=== PATIENT | female | born 1965 | race Caucasian/White ===

== ENCOUNTER 2018-05-14 22:08 | Inpatient (IN) | payer SELFPAY ==
[~2018-05-14] VITALS: Ht 157.5 cm; Wt 74.1 kg
[2018-05-14] MEDS ORDERED: ALBUTEROL SULF 0.083% NEB SOLN 3 ML NEB NEB STA (22:26)
[2018-05-14] MEDS ORDERED: SODIUM CHLORIDE 0.9% 1000ML 1,000 ML IV ONE ×2 (22:30→23:45)
[2018-05-14] MEDS ORDERED: METHYLPREDNISOLONE SOD SUCC 125 MG/2ML VIAL IV ONE (22:30)
[2018-05-14] MEDS ORDERED: IPRATROPIUM BROMIDE 0.02% 2.5 ML NEB NEB ONE (22:30)
[2018-05-14 22:48] LABS: BASOPHILS % 0.2 % (0.0-1.0); EOSINOPHILS # (AUTO) 0.2 (0.0-0.4); EOSINOPHILS % 2.5 % (0.0-6.0); HEMOGLOBIN 13.5 g/dL (12.0-16.0); LYMPHOCYTES # (AUTO) 2.6 (1.0-3.2); LYMPHOCYTES % 26.8 % (18.0-39.1); MEAN CORPUSCULAR HEMOGLOBIN 30.1 pg (28-32); MEAN CORPUSCULAR HGB CONC 33.8 g/dL (31-35); MEAN CORPUSCULAR VOLUME 89.3 fL (81-99); MONOCYTES # (AUTO) 0.4 (0.2-0.8); MONOCYTES % 4.3 % (4.4-11.3); NEUTROPHILS # (AUTO) 6.3 (2.1-6.9); NEUTROPHILS % 65.4 % (38.7-80.0); PLATELET COUNT 330 x10e3/uL (140-360); RED BLOOD COUNT 4.48 x10e6/uL (3.6-5.1)
[2018-05-14 23:07] LABS: ALANINE AMINOTRANSFERASE 16 IU/L (0-55); ALBUMIN 2.8 g/dL (3.5-5.0); ALBUMIN/GLOBULIN RATIO 0.5 (0.8-2.0); ALKALINE PHOSPHATASE 97 IU/L (40-150); ANION GAP 23.6 mmol/L (8-16); BLOOD UREA NITROGEN 19 mg/dL (7-26); BUN/CREATININE RATIO 20 (6-25); CALCIUM 9.7 mg/dL (8.4-10.2); CARBON DIOXIDE 23 mmol/L (22-29); CHLORIDE 98 mmol/L (98-107); CREATINE KINASE 62 IU/L (29-168); CREATININE, SERUM 0.94 mg/dL (0.57-1.11); EST GLOMERULAR FILTRATION RATE > 60 ML/MIN (60-); GLUCOSE 116 mg/dL (74-118); POTASSIUM 3.6 mmol/L (3.5-5.1); SODIUM 141 mmol/L (136-145)
[2018-05-14 23:15] LABS: B-TYPE NATRIURETIC PEPTIDE2 507.7 pg/mL (0-100)
[2018-05-14] MEDS ORDERED: SODIUM CHLORIDE 0.9% 1000ML 1,000 ML ONE (23:31)
[2018-05-14] MEDS ORDERED: ONDANSETRON HCL INJ 2 MG/ML VIAL IV STA (23:38)
[2018-05-14] MEDS ORDERED: HYDROMORPHONE 2MG/ML 2 MG/ML ML IV STA (23:38)
[2018-05-15] VITALS (9 sets, daily range): BP systolic 130–143; BP diastolic 71–88
--- NOTE | 2018-05-15 00:22 | Diagnostic Imaging Report ---
EXAMINATION: CHEST SINGLE (PORTABLE) INDICATION: Cough, fever COMPARISON: None FINDINGS: TUBES and LINES: None. LUNGS: Multifocal airspace disease with upper lung predominance. There is mild prominence of the central pulmonary vasculature, consistent with pulmonary venous congestion. PLEURA: No pleural effusion or pneumothorax. HEART AND MEDIASTINUM: The cardiomediastinal silhouette is unremarkable. BONES AND SOFT TISSUES: No acute osseous lesion. Soft tissues are unremarkable. UPPER ABDOMEN: No free air under the diaphragm. IMPRESSION: Findings are compatible with multifocal infection with upper lobe predominance. Follow-up until resolution after treatment is recommended. Signed by: Dr. Horacio eKlley M.D. on 05/15/2018 12:18 AM
[2018-05-15] MEDS ORDERED: CEFTRIAXONE SOD 1 GM VIAL IV SCH (00:30)
[2018-05-15] MEDS ORDERED: SODIUM CHLORIDE 0.9% 1000ML 1,000 ML IV SCH (00:36)
[2018-05-15 00:41] LABS: BILIRUBIN,URINE 1+ (NEGATIVE); CLARITY,URINE CLOUDY (CLEAR); COLOR,URINE YELLOW (YELLOW); KETONES,URINE 1+ (NEGATIVE); LEUKOCYTE ESTERASE ,URINE NEGATIVE (NEGATIVE); NITRITE,URINE NEGATIVE (NEGATIVE); PROTEIN,URINE DIPSTICK TRACE (NEGATIVE); URINE UROBILINOGEN 4 mg/dL (0.2 - 1)
--- OUTSIDE RECORDS SUMMARY | 2018-05-15 00:42 | XMS REPORT ---
Author Author [facility] Address Unknown Phone Unavailable Care Team Providers Care [place] Controller Name Role Phone Damaris MTZ Unavailable Unavailable Problems This patient has no known problems. Allergies, Adverse Reactions, Alerts This patient has no known allergies or adverse reactions. Medications This patient has no known medications. Results Test Description Test Time Test Comments Text Results Atomic Results Result Comments CHEST SINGLE (PORTABLE) 2018-05-15 00:17:00 [place] [address] Patient Name: CLARISA KIDD MR #: [id number] : 1965 Age/Sex: 52/F Req #: [id number] Adm Physician: Ordered by: ILDA MTZ MD Report #: [id number] Location: ER Room/Bed: Procedure: [id number] DX/CHEST SINGLE (PORTABLE) Exam Date: 05/14/18 Exam Time: 2305 REPORT STATUS: Signed EXAMINATION: CHEST SINGLE (PORTABLE) IND ICATION: Cough, fever COMPARISON: None FINDINGS: TUBES and LINES: None. LUNGS: Multifocal airspace disease with upper lung predominance. There is mild prominence of the central pulmonary vasculature, consistent with pulmonary venous congestion. PLEURA: No pleural effusion or pneumothorax. HEART AND MEDIASTINUM: The cardiomediastinal silhouette is unremarkable. BONES AND SOFT TISSUES: No acute osseous lesion. Soft tissues are unremarkable. UPPER ABDOMEN: No free air under the diaphragm. IMPRESSION: Findings are compatible with multifocal infection with upper lobe predominance. Follow-up until resolution after treatment is recommended. Signed by: Dr. Horacio Kelley M.D. on 05/15/2018 12:18 AM Dictated By: HORACIO PABON MD Transcribed By: MINA on 05/15/1817 COPY TO: ILDA MTZ MD
[2018-05-15 00:48] LABS: BACTERIA,URINE MANY /HPF; EPITHELIAL CELLS,URINE FEW /LPF; MUCUS,URINE MANY (RARE); RBC,URINE 0-5 /HPF (0-5); WBC,URINE (MAN) 0-5 /HPF (0-5)
[2018-05-15] MEDS: AZITHROMYCIN 500MG/NS 250 ML 250 ML IV SCH (01:12)
[2018-05-15] MEDS ORDERED: VENLAFAXINE HC150 MG PO (01:15)
[2018-05-15] MEDS: ALBUTEROL SULF 0.083% NEB SOLN 3 ML NEB NEB SCH ×6 (03:25→23:30)
[2018-05-15] MEDS: IPRATROPIUM BROMIDE 0.02% 2.5 ML NEB NEB SCH ×5 (03:25→23:30)
[2018-05-15 05:42] LABS: CREATINE KINASE MB 1.6 ng/mL (0-5.0)
[2018-05-15] MEDS ORDERED: IPRATROPIUM BROMIDE 0.02% 2.5 ML NEB NEB SCH (06:00)
[2018-05-15] MEDS: ACETAMINOPHEN 325 MG TAB PO PRN ×2 (12:17→16:22)
[2018-05-15 16:21] LABS: CREATINE KINASE MB 1.5 ng/mL (0-5.0)
[2018-05-15] MEDS: ACYCLOVIR 200 MG CAP PO SCH ×2 (17:40→21:59)
--- NOTE | 2018-05-15 18:24 | Consultation ---
DATE OF CONSULTATION: May 15, 2018 REASON FOR CONSULTATION: Pneumonia. HISTORY OF PRESENT ILLNESS: This patient is a 52-year-old white female with history of smoking. She comes in with 10 days of fever, chills and cough. She went to an urgent care center and was given Z-Nabil without improvement. Patient is getting progressively worse in terms of shortness of breath and cough and so she came to the emergency room. She also noted that she had all these oral lesions around her mouth in the last couple of days. PAST MEDICAL HISTORY: She denies. PAST SURGICAL HISTORY: She denies. ALLERGIES: NKA. SOCIAL HISTORY: She smokes one pack a day. FAMILY HISTORY: Unremarkable. LABORATORY DATA: White count 9.56, hemoglobin 13.5, hematocrit 40. Sodium 141, potassium 3.6, creatinine 0.94. Influenza A and B were negative. Blood cultures were negative. Chest x-ray was ordered and showed multifocal infection, upper lobe pneumonia. PHYSICAL EXAMINATION: GENERAL: She is currently alert and oriented and does not seem to be in acute distress. VITALS: Stable. Currently afebrile. HEENT: She is not icteric. Normocephalic. She does have vesicular lesions noted around her mouth. NECK: Supple. No JVD. No lymphadenopathy and no thyromegaly. CHEST: Clear bilateral. HEART: S1 and S2. No S3 or S4. No murmur. ABDOMEN: Soft. Bowel sounds present. No tenderness. EXTREMITIES: No edema. IMPRESSION: 1. Community-acquired pneumonia. Continue azithromycin and Rocephin. Obtain HIV. 2. Oral herpes. Will give oral Acyclovir. 3. Will follow with you. 4. Thank you for asking me to see this patient. Job#: [id number]
--- NOTE | 2018-05-15 18:40 | Consultation ---
DATE OF CONSULTATION: May 15, 2018 PULMONARY CONSULTATION A charming but unfortunate 52-year-old woman admitted with diagnosis of pneumonia. She has had cough, fever and chills for approximately 6 days. She has a severe rash on the right side of her face and lips consistent with herpes simplex now for approximately one week. She has had wheezing. She is usually healthy. 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 SOCIAL HISTORY: She was born in [place], [place]. She is a nonsmoker. No alcohol. FAMILY HISTORY: Noncontributory. MEDICATIONS: Effexor and medication to control her acid reflux. She has been nauseated, but denies vomiting. PHYSICAL EXAMINATION VITAL SIGNS: Temperature max 99.1, pulse 76, respirations 18, blood pressure 132/81. HEENT: Normocephalic, atraumatic. Eyes: Extraocular movements intact. Herpes simplex rash on lips and right side of the face. NECK: Trachea midline. HEART: Regular rhythm. LUNGS: Wheezing and rhonchi in all lung cotton. EXTREMITIES: Not edematous. IMPRESSION: Community-acquired pneumonia, likely atypical, possible viral. RECOMMENDATIONS: The patient is started on Acyclovir. White count is normal. Lactic acid was slightly elevated at 32. BNP is elevated, element of heart failure is possible. The patient seems comfortable lying supine. Continue supplemental oxygen. Empiric antibiotics. Thank you for this kind referral. Job#: [id number]
[2018-05-15 21:43] LABS: HIV 1&2 AB SCREEN NON-REACTIVE (NONREACTIVE)
[2018-05-16] VITALS (8 sets, daily range): BP systolic 144–171; BP diastolic 82–104
[2018-05-16] MEDS: AZITHROMYCIN 500MG/NS 250 ML 250 ML IV SCH (00:21)
[2018-05-16] MEDS ORDERED: CEFTRIAXONE SOD 1 GM VIAL IV SCH (00:30)
--- NOTE | 2018-05-16 00:37 | History and Physical ---
CHIEF COMPLAINT: 1. Cough. 2. Fever. 3. Wheezing since 2 weeks. HPI: This is 52-year-old female with past medical history of anxiety, mild depression, smoking, was in her usual state of health until 2 weeks ago. She started developing some cough, mild wheezing, shortness of breath, and fever. Patient went to emergency room in [place], they prescribed Z-PJ. Patient was not getting better, so she came after few days at [facility] [place] [facility]. In ER, they did a chest x-ray, found to have multifocal pneumonia. Still has some fever, cough. No shortness of breath, no chest pain. No abdominal pain, no nausea, no vomiting. No diarrhea, no constipation. No leg pain. No leg swelling. PAST MEDICAL HISTORY: 1. Anxiety. 2. Depression. PAST SURGICAL HISTORY: History of section. SOCIAL HISTORY: Patient lives with the family. HABITS: Denies drinking alcohol or illicit drug use, but she used to smoke half a pack a day for 30 years, but quit 6 months ago. MEDICATIONS: Effexor XR 75 daily. FAMILY HISTORY: Noncontributory. REVIEW OF SYSTEMS: GENERAL: Denies fatigue and weakness. HEENT: No diplopia. No blurring of vision. CARDIOPULMONARY: No chest pain. Has some shortness of breath and cough and wheezing. ALIMENTARY SYSTEM: No nausea, no vomiting. GENITOURINARY SYSTEM: No dysuria, no hematuria. MUSCULOSKELETAL SYSTEM: No joint pain. CENTRAL NERVOUS SYSTEM: No focal weakness, no seizure. PHYSICAL EXAMINATION: GENERAL: Volfg-wlc-betz-old female, who is alert and oriented x3, in no gross distress. VITAL SIGNS: Temperature 98.2, pulse 90, respiratory rate 18, blood pressure 110/70. HEENT: Head atraumatic, normocephalic. Pupils are bilaterally equal and reactive to light. Extraocular muscles intact. Conjunctivae normal. Sclerae normal. NECK: Supple. No JVD, no carotid bruit. SKIN: No clubbing, no cyanosis. LUNGS: Few rhonchi bilaterally. Air entry fair. HEART: S1 and S2. Regular rate and rhythm. No S3, no S4. No murmur. ABDOMEN: Soft, nontender. No guarding, no rigidity. EXTREMITIES: No pedal edema. Peripheral pulses +1. POWERHOUSE MECHANIC: Grossly nonfocal. LABORATORY DATA: Urine, CBC, CMP normal. Chest x-ray, multifocal infiltrate. ASSESSMENT: 1. Community-acquired pneumonia, failed p.o. antibiotics. 2. Anxiety. 3. Depression. 4. Possible chronic obstructive pulmonary disease. PLAN: Pulmonary and ID consult. IV Rocephin 2 g q.24h. IV Zithromax 500 IV daily. Neb treatment q.6h. Lab tomorrow morning. IV fluids discontinue. Continue home medicines. Case discussed with patient, told condition and prognosis. Job#: [id number]
[2018-05-16] MEDS: ALBUTEROL SULF 0.083% NEB SOLN 3 ML NEB NEB SCH ×6 (03:00→22:00)
[2018-05-16] MEDS: CEFTRIAXONE SOD 2 GM VIAL IV SCH (06:28)
[2018-05-16] MEDS: ACYCLOVIR 200 MG CAP PO SCH ×5 (06:28→21:37)
[2018-05-16 07:07] LABS: BASOPHILS % 0.1 % (0.0-1.0); EOSINOPHILS # (AUTO) 0.1 (0.0-0.4); EOSINOPHILS % 0.6 % (0.0-6.0); HEMOGLOBIN 10.8 g/dL (12.0-16.0); LYMPHOCYTES # (AUTO) 2.6 (1.0-3.2); LYMPHOCYTES % 22.5 % (18.0-39.1); MEAN CORPUSCULAR HEMOGLOBIN 30.7 pg (28-32); MEAN CORPUSCULAR HGB CONC 33.8 g/dL (31-35); MEAN CORPUSCULAR VOLUME 90.9 fL (81-99); MONOCYTES # (AUTO) 0.6 (0.2-0.8); NEUTROPHILS # (AUTO) 8.2 (2.1-6.9); PLATELET COUNT 326 x10e3/uL (140-360); RED BLOOD COUNT 3.52 x10e6/uL (3.6-5.1); RED CELL DISTRIBUTION WIDTH 16.8 % (11.7-14.4)
[2018-05-16] MEDS: IPRATROPIUM BROMIDE 0.02% 2.5 ML NEB NEB SCH ×3 (07:18→22:00)
[2018-05-16 07:24] LABS: ALANINE AMINOTRANSFERASE 14 IU/L (0-55); ALBUMIN 2.4 g/dL (3.5-5.0); ALBUMIN/GLOBULIN RATIO 0.6 (0.8-2.0); ALKALINE PHOSPHATASE 77 IU/L (40-150); ANION GAP 16.5 mmol/L (8-16); BLOOD UREA NITROGEN 11 mg/dL (7-26); BUN/CREATININE RATIO 16 (6-25); CALCIUM 8.5 mg/dL (8.4-10.2); CARBON DIOXIDE 21 mmol/L (22-29); CHLORIDE 104 mmol/L (98-107); CREATININE, SERUM 0.69 mg/dL (0.57-1.11); EST GLOMERULAR FILTRATION RATE > 60 ML/MIN (60-); GLUCOSE 91 mg/dL (74-118); POTASSIUM 3.5 mmol/L (3.5-5.1); SODIUM 138 mmol/L (136-145)
[2018-05-16] MEDS ORDERED: POTASSIUM CHLORIDE 20 MEQ TAB CR PO STA (08:12)
[2018-05-16] MEDS ORDERED: ACETAMINOPHEN 325 MG TAB PO PRN ×2 (08:30→08:45)
[2018-05-16] MEDS: PANTOPRAZOLE SOD 40 MG TABEC PO SCH (09:39)
[2018-05-16] MEDS: VENLAFAXINE HCL 75 MG CAPCR PO SCH (09:39)
[2018-05-16] MEDS: ACYCLOVIR 15 GM OINT TP SCH ×2 (10:00→16:53)
--- NOTE | 2018-05-16 17:06 | Diagnostic Imaging Report ---
EXAMINATION: PA and lateral views of the chest. COMPARISON: Single chest 05/14/2018 CLINICAL HISTORY: Multifocal pneumonia DISCUSSION: Lines/tubes: None. Lungs: The lungs are well-inflated. No significant interval change in diffuse bilateral interstitial opacities. There are slightly more confluent alveolar opacities in the left lower lung. Pleura: There is no pleural effusion or pneumothorax. Heart and mediastinum: Mildly enlarged cardiac silhouette . Pulmonary vasculature is normal. Bones and soft tissues: No acute bony abnormalities. IMPRESSION: Persistent bilateral interstitial opacities,, which slightly more confluent alveolar opacities in the left lower lung. Signed by: Dr. David Chaves M.D. on 05/16/2018 5:02 PM
[2018-05-16] MEDS ORDERED: AMLODIPINE BESYLATE 5 MG TAB PO ONE (22:30)
[2018-05-17] VITALS (8 sets, daily range): BP systolic 120–137; BP diastolic 73–98
[2018-05-17] MEDS: AZITHROMYCIN 500MG/NS 250 ML 250 ML IV SCH (00:20)
[2018-05-17] MEDS: CEFTRIAXONE SOD 2 GM VIAL IV SCH (00:22)
[2018-05-17] MEDS: IPRATROPIUM BROMIDE 0.02% 2.5 ML NEB NEB SCH ×4 (02:45→20:22)
[2018-05-17] MEDS: ALBUTEROL SULF 0.083% NEB SOLN 3 ML NEB NEB SCH ×5 (02:45→20:22)
[2018-05-17] MEDS: ACYCLOVIR 200 MG CAP PO SCH ×5 (05:23→20:48)
[2018-05-17 05:36] LABS: BASOPHILS % 0.1 % (0.0-1.0); EOSINOPHILS # (AUTO) 0.2 (0.0-0.4); HEMATOCRIT 32.9 % (34.2-44.1); LYMPHOCYTES # (AUTO) 2.1 (1.0-3.2); MEAN CORPUSCULAR HEMOGLOBIN 30.5 pg (28-32); MEAN CORPUSCULAR HGB CONC 33.4 g/dL (31-35); MEAN CORPUSCULAR VOLUME 91.1 fL (81-99); MONOCYTES # (AUTO) 0.7 (0.2-0.8); MONOCYTES % 7.5 % (4.4-11.3); NEUTROPHILS # (AUTO) 5.9 (2.1-6.9); NEUTROPHILS % 66.6 % (38.7-80.0); PLATELET COUNT 376 x10e3/uL (140-360); RED BLOOD COUNT 3.61 x10e6/uL (3.6-5.1)
[2018-05-17 06:00] LABS: ANION GAP 15.2 mmol/L (8-16); BLOOD UREA NITROGEN 8 mg/dL (7-26); BUN/CREATININE RATIO 12 (6-25); CALCIUM 8.4 mg/dL (8.4-10.2); CARBON DIOXIDE 25 mmol/L (22-29); CHLORIDE 104 mmol/L (98-107); CREATININE, SERUM 0.68 mg/dL (0.57-1.11); EST GLOMERULAR FILTRATION RATE > 60 ML/MIN (60-); GLUCOSE 115 mg/dL (74-118); POTASSIUM 3.2 mmol/L (3.5-5.1); SODIUM 141 mmol/L (136-145)
[2018-05-17] MEDS: PANTOPRAZOLE SOD 40 MG TABEC PO SCH (08:37)
[2018-05-17] MEDS: VENLAFAXINE HCL 75 MG CAPCR PO SCH (08:37)
[2018-05-17] MEDS: ACYCLOVIR 15 GM OINT TP SCH ×2 (08:38→16:54)
[2018-05-17] MEDS: AMLODIPINE BESYLATE 5 MG TAB PO SCH (08:38)
[2018-05-17] MEDS ORDERED: POTASSIUM CHLORIDE 20 MEQ TAB CR PO ONE (09:15)
[2018-05-17] MEDS: HEPARIN SOD (PORCINE) 5,000 UNIT/ML VIAL SC SCH (20:54)
[2018-05-18] VITALS: BP 136/96
[2018-05-18] MEDS: ALBUTEROL SULF 0.083% NEB SOLN 3 ML NEB NEB SCH ×5 (00:11→15:14)
[2018-05-18] MEDS: AZITHROMYCIN 500MG/NS 250 ML 250 ML IV SCH (00:35)
[2018-05-18] MEDS: CEFTRIAXONE SOD 2 GM VIAL IV SCH (00:35)
[2018-05-18] MEDS: IPRATROPIUM BROMIDE 0.02% 2.5 ML NEB NEB SCH ×3 (01:00→15:14)
[2018-05-18 04:00] VITALS: BP 144/88
[2018-05-18] MEDS: ACYCLOVIR 200 MG CAP PO SCH ×4 (04:56→16:40)
[2018-05-18 05:34] LABS: ALANINE AMINOTRANSFERASE 18 IU/L (0-55); ALBUMIN 2.4 g/dL (3.5-5.0); ALBUMIN/GLOBULIN RATIO 0.6 (0.8-2.0); ALKALINE PHOSPHATASE 91 IU/L (40-150); ANION GAP 15.6 mmol/L (8-16); BLOOD UREA NITROGEN 8 mg/dL (7-26); BUN/CREATININE RATIO 13 (6-25); CALCIUM 8.7 mg/dL (8.4-10.2); CARBON DIOXIDE 25 mmol/L (22-29); CHLORIDE 102 mmol/L (98-107); CREATININE, SERUM 0.63 mg/dL (0.57-1.11); EST GLOMERULAR FILTRATION RATE > 60 ML/MIN (60-); GLUCOSE 94 mg/dL (74-118); POTASSIUM 3.6 mmol/L (3.5-5.1); SODIUM 139 mmol/L (136-145)
[2018-05-18] MEDS: VENLAFAXINE HCL 75 MG CAPCR PO SCH (08:04)
[2018-05-18] MEDS: PANTOPRAZOLE SOD 40 MG TABEC PO SCH (08:04)
[2018-05-18] MEDS: AMLODIPINE BESYLATE 5 MG TAB PO SCH (08:04)
[2018-05-18] MEDS: HEPARIN SOD (PORCINE) 5,000 UNIT/ML VIAL SC SCH (08:05)
[2018-05-18] MEDS: ACYCLOVIR 15 GM OINT TP SCH ×2 (08:05→16:40)
[2018-05-18 08:45] VITALS: BP 128/68
[2018-05-18 09:00] VITALS: BP 128/68
[2018-05-18 12:35] VITALS: BP 125/74
[2018-05-18 14:00] VITALS: BP 123/76
[2018-05-18] MEDS ORDERED: NORVASC5 MG PO (16:16)
[2018-05-18] MEDS ORDERED: KEFLEX500 MG (16:18)
[2018-05-18] MEDS ORDERED: AZITHROMYCIN250 MG PO (16:19)
[2018-05-18] MEDS ORDERED: ACYCLOVIR800 MG PO (16:20)
--- NOTE | 2018-07-13 18:04 | Discharge Summary ---
CHIEF COMPLAINT: Multifocal pneumonia. FINAL DIAGNOSES 1. Multifocal pneumonia. 2. Herpetic lesions, mouth and lips. 3. Debility. 4. Hypertension. DISPOSITION: Home. HOSPITAL COURSE: A 52-year-old female presents to the emergency room with an 8-day history of cough, fever, and congestion. She had been seen in the office earlier and she was given a Z-Nabil 2 days prior to this admission, but has failed treatment. She had been a tobacco abuser, but she stated she quit 4 days ago and is still currently off the tobacco. She has had a cough with nasal congestion, subjective fever and chills, and muscle aches, nasal discharge. The cough has been positive with white sputum. No shortness of breath. No chest discomfort or chest pain. She has had similar symptoms previously, similar symptoms several times. She was reviewed and evaluated in the emergency room, studies were performed, blood work as well as x-rays. Chest x-rays were showing findings of multifocal pneumonia. An admission was made for evaluation of pneumonia. She was on the med floor on a cardiac diet. She was receiving nebulizer treatments. Also was placed on ceftriaxone as well as azithromycin. Issues of herpetic lesions on the lips and mouth led to her being placed on acyclovir. Laboratory studies were showing borderline potassium of 3.5. Kidney functions stable. Glucose 91. White blood cell count borderline at 11,500. She was beginning to feel better, responding well to medications. In addition to her p.o. acyclovir, she was placed on topical acyclovir as well for her lips. Labs remained stable. Improvement continued on a day-by-day basis. She did have decline in her potassium down to 3.2 and she was started on some p.o. supplements. Blood culture and throat cultures were returning negative. She was continued on her antiviral and her other antibiotics. She was cleared for discharge and she was able to be released home on May 18, 2018 in stable condition. She had an echocardiogram, was showing ejection fraction of 50-55%, no evidence of pericardial effusion. She was evaluated for O2 saturation and it was noted that her O2 sats on room air were 96%; on room air at rest, 96%; room air with exertion, 92%; receiving 2 liters of O2, with exertion 98%. IMAGING: Chest shows findings compatible with multifocal infection with upper lobe predominance. DISCHARGE INSTRUCTIONS: She was discharged home. She was placed on a regular diet. No equipment or supplies necessary. No drains or Jacques needed. Activity level as directed by myself as well as by Dr. Patiño and Dr. Ordonez. Prescriptions were written for Norvasc 5 mg 1 tablet p.o. daily, Keflex 500 mg 1 tablet p.o. t.i.d. for 7 days, Z-Nabil as directed, acyclovir 800 mg p.o. t.i.d. for 5 days. She will also continue on venlafaxine 150 mg daily. She will be following back up with me in my office within 2 days. If any further questions or concerns, she will call me in my office. Dictated by: LEO Hinkle Job#: [id number] LEBRON
== END 2018-05-18 17:08 | disposition home or self-care (01) | DRG 195 ==
LOC: ER 22:08 → ERHOLD 05-15 00:40 → MED/SURG2 05-15 01:16
PROVIDERS: ADMIT Internal Medicine; ATTEND Internal Medicine
DX: J12.9 Viral pneumonia, unspecified (principal); F41.9 Anxiety disorder, unspecified; F31.9 Bipolar disorder, unspecified; Z87.891 Personal history of nicotine dependence; B00.9 Herpesviral infection, unspecified; I10 Essential (primary) hypertension; K21.9 Gastro-esophageal reflux disease without esophagitis; J44.9 Chronic obstructive pulmonary disease, unspecified; I50.9 Heart failure, unspecified
CPT/HCPCS: 36415; 71045; 71046; 80048; 80053; 81001; 82550; 82553; 83518; 83605; 83880; 84484; 85025; 87040; 87070; 87390; 87400; 87536; 93306; 94640; 99284; G0433; G0435; J0456; J0696; J1644; J2930; J7030